=== PATIENT | male | born 1995 | race Caucasian/White ===

== ENCOUNTER 2018-01-29 17:47 | Emergency (ER) | payer BC ==
[~2018-01-29] VITALS: Ht 172.7 cm; Wt 89.4 kg
[~2018-01-29 17:47] MED LIST: CONCERTA36 MG PO; DAILY MULTIPLE1 EACH PO; DICLOFENAC SOD100 MG PO; LIPITOR40 MG PO; LOVAZA1 GM PO; SYNTHROID100 MCG PO; THERAMINE CAPS1 EACH PO; ULTRAM50 MG PO; VITAMIN D34000 UNIT PO; ZOLOFT100 MG PO; ZOLOFT25 MG PO
[2018-01-29] MEDS ORDERED: MOTRIN800 MG PO (18:59)
[2018-01-29] MEDS ORDERED: KEFLEX500 MG PO (18:59)
[2018-01-29] MEDS ORDERED: TRIAMCINOLONE AC5 GM DT (19:04)
[2018-01-29] MEDS ORDERED: TRIAMCINOLONE A15 GM TP (19:09)
[2018-01-29 19:25] VITALS: BP 154/93
== END 2018-01-29 19:31 | disposition home or self-care (01) ==
LOC: EME 17:47
DX: L03.114 Cellulitis of left upper limb (principal); S61.402A Unspecified open wound of left hand, initial encounter; L23.7 Allergic contact dermatitis due to plants, except food; F90.9 Attention-deficit hyperactivity disorder, unspecified type; Z87.820 Personal history of traumatic brain injury; Z88.5 Allergy status to narcotic agent; Z91.018 Allergy to other foods
CPT/HCPCS: 99281; 99284

== ENCOUNTER 2018-05-24 14:32 | Emergency (ER) | payer BC ==
[~2018-05-24] VITALS: Ht 172.7 cm; Wt 87.5 kg
[~2018-05-24 14:32] MED LIST changes: +KEFLEX500 MG PO; +MOTRIN800 MG PO; +TRIAMCINOLONE A15 GM TP; +TRIAMCINOLONE AC5 GM DT
[2018-05-24] MEDS ORDERED: ZOFRAN ODT4 MG PO (16:54)
[2018-05-24 17:10] VITALS: BP 130/75
== END 2018-05-24 17:10 | disposition home or self-care (01) ==
LOC: EME 14:32
DX: S06.0X0A Concussion without loss of consciousness, initial encounter (principal); S00.93XA Contusion of unspecified part of head, initial encounter; W22.8XXA Striking against or struck by other objects, initial encounter; Z87.820 Personal history of traumatic brain injury
CPT/HCPCS: 70450; 99281; 99283